=== PATIENT | female | born 1995 | race Caucasian/White ===

== ENCOUNTER → 2021-07-27 | Outpatient (CLI) | payer OTHER | END | disposition home or self-care (01) | LOC: RADMN 09:16 | PROVIDERS: ATTEND Internal Medicine | DX: R76.11 Nonspecific reaction to tuberculin skin test without active tuberculosis (principal) | CPT/HCPCS: 71045 ==

== ENCOUNTER 2021-08-22 05:04 | Emergency (ER) | payer OTHER ==
[~2021-08-22] VITALS: Ht 160 cm; Wt 98.0 kg
[2021-08-22] MEDS ORDERED: ISON100 PO (05:07)
[2021-08-22] MEDS ORDERED: RIFA150 PO (05:07)
[2021-08-22] MEDS ORDERED: DULO20CA27 PO (05:07)
[2021-08-22] MEDS ORDERED: IBUPROFEN 800 MG TABLET PO ONE (05:15)
[2021-08-22] MEDS ORDERED: ACETAMINOPHEN 500 MG TABLET PO ONE (05:15)
[2021-08-22 05:32] LABS: COVID AG,FIA SOURCE NASOPHARYNGEAL
[2021-08-22 05:58] LABS: APPEARANCE,URINE CLEAR (CLEAR); BILIRUBIN,URINE NEGATIVE (NEGATIVE); GLUCOSE, URINE (UA) NEGATIVE (NEGATIVE); KETONES,URINE NEGATIVE (NEGATIVE); LEUKOCYTE ESTERASE ,URINE NEGATIVE (NEGATIVE); NITRATE,URINE NEGATIVE (NEGATIVE); OCCULT BLOOD,URINE TRACE (NEGATIVE); PH,URINE 5.5 (5.0-8.0); PROTEIN,URINE NEGATIVE (NEGATIVE); UROBILINOGEN,URINE 0.2 mg/dL (<=1.0)
[2021-08-22 06:19] LABS: INFLUENZA TYPE A NEGATIVE FOR TYPE A (NEGATIVE); INFLUENZA TYPE B NEGATIVE FOR TYPE B (NEGATIVE)
[2021-08-22 06:47] LABS: AMORPHOUS SEDIMENT,UR Few /LPF (None Seen); BACTERIA,URINE Few /HPF (None Seen); RBC,URINE None Seen /HPF (0-2); SQUAMOUS EPITHELIAL CELL,UR Few /LPF (None Seen); WBC,URINE None Seen /HPF (0-5)
[2021-08-22 08:15] VITALS: BP 128/81
== END 2021-08-22 08:21 | disposition home or self-care (01) ==
LOC: EMS 05:04
DX: R50.9 Fever, unspecified (principal); M79.10 Myalgia, unspecified site; Z20.822 Contact with and (suspected) exposure to COVID-19; Z22.7 Latent tuberculosis
CPT/HCPCS: 71046; 81001; 81025; 87426; 87804; 99284; U0003; 80074; 87389; 36415-L1; 36415-TC

== ENCOUNTER 2022-02-07 12:37 | Emergency (ER) | payer OTHER ==
[~2022-02-07] VITALS: Ht 160 cm; Wt 95.5 kg
[~2022-02-07 12:37] MED LIST: DULO20CA71 PO; ISON100 PO; [UNRECOGNIZED DRUG - CODE] PO
[2022-02-07 12:41] VITALS: BP 135/88
[2022-02-07 13:40] LABS: COVID AG,FIA SOURCE NASOPHARYNGEAL
[2022-02-07 14:21] LABS: INFLUENZA TYPE A NEGATIVE FOR TYPE A (NEGATIVE); INFLUENZA TYPE B NEGATIVE FOR TYPE B (NEGATIVE)
[2022-02-07 14:29] LABS: RAPID GROUP A STREP NEGATIVE (NEGATIVE)
[2022-02-07] MEDS ORDERED: BENZ-70 PO (14:42)
== END 2022-02-07 15:10 | disposition home or self-care (01) ==
LOC: EMS 12:42
DX: U07.1 COVID-19 (principal); F41.9 Anxiety disorder, unspecified
CPT/HCPCS: 87430; 87804; 99283

== ENCOUNTER 2022-02-08 19:52 | Emergency (ER) | payer OTHER ==
[~2022-02-08] VITALS: Ht 160 cm; Wt 95.5 kg
[~2022-02-08 19:52] MED LIST changes: +BENZ-70 PO
[2022-02-08] MEDS ORDERED: TOCILIZUMAB 800 MG in SODIUM CHLORIDE 0.9% 60 ML IV ONE (20:45)
[2022-02-08 20:59] LABS: ANION GAP 9 mmol/L (8-16); CALCIUM, TOTAL 8.2 mg/dL (8.8-10.5); CARBON DIOXIDE 26 mmol/L (22-29); CHLORIDE 103 mmol/L (98-107); CREATININE 0.73 mg/dL (0.60-1.30); GLOMERULAR FILTR. RATE CALC > 60 mL/min (>60); GLUCOSE,RANDOM 112 mg/dL (70-110); POTASSIUM 3.5 mmol/L (3.5-5.1); SODIUM SERUM 138 mmol/L (136-145); UREA NITROGEN, BLOOD 13 mg/dL (7-18)
[2022-02-08 21:05] LABS: ALANINE AMINOTRANSFERASE 15 U/L (12-78); ALBUMIN 3.1 g/dL (3.4-5.0); ALKALINE PHOSPHATASE 68 U/L (46-116); ASPARTATE AMINOTRANSFERASE 10 U/L (15-37); BILIRUBIN,TOTAL 0.4 mg/dL (0.1-1.0); TOTAL PROTEIN, SERUM 6.5 g/dL (6.4-8.2)
[2022-02-08 21:08] LABS: BASOPHILS % (AUTO) 0.3 % (0.0-2.0); EOSINOPHILS % (AUTO) 1.6 % (1.0-6.0); HEMATOCRIT 38.3 % (36-46); LYMPHOCYTES # (AUTO) 1.2 K/uL (1.0-4.8); LYMPHOCYTES % (AUTO) 24.2 % (22.0-44.0); MEAN CORPUSCULAR HEMOGLOBIN 28.4 pg (26.0-34.0); MEAN CORPUSCULAR VOLUME 84 fL (80-100); MONOCYTES # (AUTO) 0.5 K/uL (0.1-1.0); MONOCYTES % (AUTO) 11.4 % (2.0-9.0); NEUTROPHILS % (AUTO) 62.5 % (40.0-70.0); PLATELET COUNT (AUTO) 194 K/uL (150-450); RED BLOOD CELL COUNT(AUTO) 4.59 MIL/uL (4.00-5.20); RED CELL DISTRIBUTION WIDTH 13.1 % (11.5-14.5)
[2022-02-08 23:33] VITALS: BP 132/76
== END 2022-02-08 23:55 | disposition home or self-care (01) ==
LOC: EMS 19:58
DX: U07.1 COVID-19 (principal); F41.9 Anxiety disorder, unspecified; Z88.0 Allergy status to penicillin; Z88.2 Allergy status to sulfonamides; Z79.899 Other long term (current) drug therapy
CPT/HCPCS: 36415; 80053; 84703; 85025; 96365; 99285; J7050; Q9967

== ENCOUNTER 2022-10-11 18:03 | Emergency (ER) | payer BC, OTHER ==
[~2022-10-11] VITALS: Ht 160 cm; Wt 97.0 kg
[~2022-10-11 18:03] MED LIST changes: +BENZ-227 PO; -BENZ-70 PO; -ISON100 PO; -[UNRECOGNIZED DRUG - CODE] PO
[2022-10-11] MEDS ORDERED: METFORMIN PO (18:06)
[2022-10-11] MEDS ORDERED: CARB100 PO ×2 (18:09→21:01)
[2022-10-11] MEDS ORDERED: ESCI10 PO (18:22)
[2022-10-11] MEDS ORDERED: TIRZ7.5P SQ (18:22)
[2022-10-11] MEDS ORDERED: METF-1211 PO (18:22)
[2022-10-11] MEDS ORDERED: CarBAMazepine 200 MG TABLET PO ONE (18:30)
[2022-10-11] MEDS ORDERED: DiphenhydrAMINE HCL 50 MG/ML VIAL IVP ONE (19:45)
[2022-10-11] MEDS ORDERED: METOCLOPRAMIDE HCL 5 MG/ML 2 ML VIAL IVP ONE (19:45)
[2022-10-11] MEDS ORDERED: SODIUM CHLORIDE 0.9% 1,000 ML IV ONE (19:45)
[2022-10-11] MEDS ORDERED: KETOROLAC TROMETHAMINE 30 MG/ML VIAL IVP ONE (19:45)
[2022-10-11 21:45] VITALS: BP 111/73
== END 2022-10-11 22:01 | disposition home or self-care (01) ==
LOC: EMS 18:03
DX: G50.0 Trigeminal neuralgia (principal); R51.9 Headache, unspecified; F41.9 Anxiety disorder, unspecified; Z88.0 Allergy status to penicillin; Z88.2 Allergy status to sulfonamides
CPT/HCPCS: 99284; 96374; 96375; 96361; J1200; J1885; J2765; J7030